=== PATIENT | female | born 1995 ===

== ENCOUNTER 2023-11-08 16:24 | Outpatient (REF) | payer MEDICAID, SELFPAY ==
[2023-11-10 09:28] LABS: C. trachomatis RNA TMA NOT DETECTED (NOT DETECTED); N. gonorrhoeae RNA TMA NOT DETECTED (NOT DETECTED); Trichomonas (NAAT) NOT DETECTED (NOT DETECTED)
[2023-11-27 12:14] LABS: Clinical Information NONE GIVEN; Previous Biopsy Date NONE GIVEN; Thin Prep Source CERVIX
== END 2023-11-08 16:25 | disposition home or self-care (01) ==
LOC: HO.HHCLNP 16:24
PROVIDERS: Visit Provider Advanced Practice Midwife
DX: Z12.4 Encounter for screening for malignant neoplasm of cervix (principal); Z11.3 Encounter for screening for infections with a predominantly sexual mode of transmission
CPT/HCPCS: 36415; 87491; 87591; 87625; 87661; 88175